=== PATIENT | female | born 1990 | race Caucasian/White ===

== ENCOUNTER 2018-06-16 14:03 | Emergency (ER) | payer OTHER, SELFPAY ==
[2018-06-16 14:13] VITALS: BP 128/88; PULSE 91; RESP 18; TEMP 36.8; O2SAT 97
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
[2018-06-16] MEDS: KETOROLAC 60 MG/2 ML VIAL IM (16:19)
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
[2018-06-16 17:12] VITALS: BP 139/91; PULSE 70; RESP 16; O2SAT 99
== END 2018-06-16 17:12 | disposition home or self-care (01) ==
PROVIDERS: Emergency Provider Nurse Practitioner Family
DX: S20.219A Contusion of unspecified front wall of thorax, initial encounter (principal); M62.830 Muscle spasm of back; V49.40XA Driver injured in collision with unspecified motor vehicles in traffic accident, initial encounter
CPT/HCPCS: 71046; 72082; 96372; 99282; 99283; J1885

== ENCOUNTER 2018-07-26 15:22 | Emergency (ER) | payer OTHER, SELFPAY ==
[2018-07-26 15:27] VITALS: BP 128/84; PULSE 106; RESP 16; TEMP 37.4; O2SAT 96; BMI 40.0
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
[2018-07-26 16:17] VITALS: TEMP 36.9
== END 2018-07-26 16:18 | disposition home or self-care (01) ==
PROVIDERS: Emergency Provider Internal Medicine
DX: J02.0 Streptococcal pharyngitis (principal)
CPT/HCPCS: 87880; 99282; 99283